=== PATIENT | male | born 2000 | race American Indian/Alaskan Native ===

== ENCOUNTER 2021-01-25 11:35 | Emergency (ER) | payer OTHER ==
[2021-01-25 11:48] VITALS: BP 120/63
--- NOTE | 2021-01-25 12:43 | Ultrasound Report ---
ULTRASOUND SCROTUM INDICATION / CLINICAL INFORMATION: PAIN AND SWELLING of the scrotum. COMPARISON: None available. FINDINGS -- RIGHT: TESTIS: Size = 4.3 x 2.0 x 2.9 cm. - Appearance: No significant abnormality. - Cyst / Mass: None. - Color Doppler Flow: No significant abnormality. EPIDIDYMIS: No significant abnormality. HYDROCELE: None. VARICOCELE: None demonstrated. FINDINGS -- LEFT: TESTIS: Size = 4.5 x 2.8 x 3.6 cm. - Appearance: No significant abnormality. - Cyst / Mass: None. - Color Doppler Flow: No significant abnormality. EPIDIDYMIS: No significant abnormality. HYDROCELE: None. VARICOCELE: None demonstrated. ADDITIONAL FINDINGS: Small, complex fluid collection medial to the left testis measuring 2.3 x 1.3 cm . IMPRESSION: 1. No significant sonographic abnormality of either testis. 2. Small, complex fluid collection in the left hemiscrotum medial to the left testis. Signer Name: Mike Jimenez MD Signed: 01/25/2021 12:38 PM Workstation Name: [id number]
[2021-01-25 13:01] LABS: Bilirubin,Urine NEG (Negative); Blood,Urine MOD (Negative); Color,Urine Yellow (Yellow); Mucus,Urine 3+ /HPF
[2021-01-25] MEDS ORDERED: LIDOCAINE-MPF (1%) 10 MG/1 ML VIAL 5 ML INFILTRATI ONE (14:11)
[2021-01-25] MEDS ORDERED: HYDROcodone/ACETAMINOPHEN 5-325 MG TAB PO ONE (14:14)
[2021-01-25] MEDS ORDERED: ONDANSETRON 4 MG ODT TAB PO ONE (14:14)
--- NOTE | 2021-01-25 14:20 | Emergency Department Report ---
ED Male HPI - General Chief complaint: Urogenital-Male Stated complaint: TESTICULAR TORSION SX Time Seen by Provider: 01/25/21 14:06 Source: patient Mode of arrival: Ambulatory Limitations: No Limitations - History of Present Illness Initial comments: Patient is a 20-year-old male who presents emergency room with complaints of left-sided testicular pain and swelling that began 2 weeks ago. He reports that it has worsened in the last 3 days. He denies any dysuria, penile discharge, blood in his semen, hematuria, abdominal pain, fever, nausea, vomiting, diarrhea, urinary retention, lesions or blisters. No past medical history. No allergies to medications. He states he was last sexually active in December. - Related Data Previous Rx's Medication Instructions Recorded Last Taken Type Doxycycline Hyclate [Doxycycline 100 mg PO BID 7 Days #14 tab 01/25/21 Unknown Rx Hyclate TAB] Naproxen 375 mg PO BID PRN #20 tablet 01/25/21 Unknown Rx traMADoL [Ultram 50 MG tab] 50 mg PO Q6HR PRN #12 tablet 01/25/21 Unknown Rx Allergies Allergy/AdvReac Type Severity Reaction Status Date / Time No Known Allergies Allergy Unverified 01/25/21 11:45 ED Review of Systems ROS: Stated complaint: TESTICULAR TORSION SX Other details as noted in HPI Comment: All other systems reviewed and negative ED Past Medical Hx - Past Medical History Previous Medical History?: No - Surgical History Past Surgical History?: No - Medications Home Medications: Home Medications Medication Instructions Recorded Confirmed Last Taken Type Doxycycline Hyclate [Doxycycline 100 mg PO BID 7 Days #14 tab 01/25/21 Unknown Rx Hyclate TAB] Naproxen 375 mg PO BID PRN #20 tablet 01/25/21 Unknown Rx traMADoL [Ultram 50 MG tab] 50 mg PO Q6HR PRN #12 tablet 01/25/21 Unknown Rx ED Physical Exam - General Limitations: No Limitations General appearance: alert, in no apparent distress - Head Head exam: Present: atraumatic, normocephalic - Eye Eye exam: Present: normal appearance - ENT ENT exam: Present: mucous membranes moist - GI/Abdominal GI/Abdominal exam: Present: soft. 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, there is left sided testicular ttp and left scrotal edema, no lesions or blisters, no erythema, no increased warmth, normal testicular lie, normal cremasteric reflex, no hernia) - Neurological Exam Neurological exam: Present: alert, oriented X3 - Psychiatric Psychiatric exam: Present: normal affect, normal mood - Skin Skin exam: Present: warm, dry, intact ED Course Vital Signs 01/25/21 11:46 Temperature 98.0 F Pulse Rate 88 Respiratory 18 Rate Blood Pressure 120/63 O2 Sat by Pulse 97 Oximetry ED Medical Decision Making - Radiology Data Radiology results: report reviewed Ordering Physician: ROBERT MCCOY MD Date of Service: 01/25/21 Procedure(s): US testicular doppler comp Accession Number(s): [id number] cc: ROBERT MCCOY MD ULTRASOUND SCROTUM INDICATION / CLINICAL INFORMATION: PAIN AND SWELLING of the scrotum. COMPARISON: None available. FINDINGS -- RIGHT: TESTIS: Size = 4.3 x 2.0 x 2.9 cm. - Appearance: No significant abnormality. - Cyst / Mass: None. - Color Doppler Flow: No significant abnormality. EPIDIDYMIS: No significant abnormality. HYDROCELE: None. VARICOCELE: None demonstrated. FINDINGS -- LEFT: TESTIS: Size = 4.5 x 2.8 x 3.6 cm. - Appearance: No significant abnormality. - Cyst / Mass: None. - Color Doppler Flow: No significant abnormality. EPIDIDYMIS: No significant abnormality. HYDROCELE: None. VARICOCELE: None demonstrated. ADDITIONAL FINDINGS: Small, complex fluid collection medial to the left testis measuring 2.3 x 1.3 cm. IMPRESSION: 1. No significant sonographic abnormality of either testis. 2. Small, complex fluid collection in the left hemiscrotum medial to the left testis. Signer Name: Mike Jimenez MD Signed: 01/25/2021 12:38 PM Workstation Name: [id number] Transcribed By: DT Dictated By: Gianfranco Jimenez MD Electronically Authenticated By: Gianfranco Jimenez MD Signed Date/Time: 01/25/21 1238 DD/ 1236 TD/TT: Print - Medical Decision Making Patient is a 20-year-old male who presents emergency room with complaints of left-sided testicular pain and swelling that began 2 weeks ago. He reports that it has worsened in the last 3 days. He denies any dysuria, penile discharge, blood in his semen, hematuria, abdominal pain, fever, nausea, vomiting, diarrhea, urinary retention, lesions or blisters. No past medical history. No allergies to medications. He states he was last sexually active in December. Vitals are normal. 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 UA shows evidence of red blood cells but is otherwise normal. Scrotal ultrasound: 1. No significant sonographic abnormality of either testis. 2. Small, complex fluid collection in the left hemiscrotum medial to the left testis. Discussed case with Dr. Gtz, ER attending who advised to cover patient for STDs and refer to urology. I discussed all results with patient and answer questions. I discussed the importance of urology follow-up to rule out testicular cancer or other pathology. Patient given ceftriaxone IM while in the emergency department. Patient given prescription for doxycycline and pain medication. Advised patient Please take medication as prescribed. Follow-up with a urologist. It is very important that you follow-up with urologist to rule out any signs of testicular cancer. Return to emergency room for any new or worsening symptoms. Critical care attestation.: If time is entered above; I have spent that time in minutes in the direct care of this critically ill patient, excluding procedure time. ED Disposition Clinical Impression: Left testicular pain, Testicular swelling, left, Testicular abnormality Disposition: 01 HOME / SELF CARE / HOMELESS Is pt being admited?: No Does the pt Need Aspirin: No Condition: Stable Additional Instructions: Please take medication as prescribed. Follow-up with a urologist. It is very important that you follow-up with urologist to rule out any signs of testicular cancer. Return to emergency room for any new or worsening symptoms. Prescriptions: Doxycycline Hyclate [Doxycycline Hyclate TAB] 100 mg PO BID 7 Days #14 tab Naproxen 375 mg PO BID PRN #20 tablet PRN Reason: moderate pain traMADoL [Ultram 50 MG tab] 50 mg PO Q6HR PRN #12 tablet PRN Reason: Pain , Severe (7-10) Referrals: YAMIL BRODY MD [Staff Physician] - 2-3 Days Time of Disposition: 14:19 Print Language: MONTSERRAT[place]
== END 2021-01-25 14:31 | disposition home or self-care (01) ==
LOC: ED 11:35
DX: N50.812 Left testicular pain (principal); N50.89 Other specified disorders of the male genital organs; Q55.20 Unspecified congenital malformations of testis and scrotum
CPT/HCPCS: 81001; 93975; 99284